=== PATIENT | female | born 1975 | race Hispanic/Latino ===

== ENCOUNTER → 2018-11-14 | Outpatient (CLI) | payer BC | END | disposition home or self-care (01) | LOC: RAH 07:44 | PROVIDERS: ATTEND Internal Medicine | DX: K76.0 Fatty (change of) liver, not elsewhere classified (principal); K43.9 Ventral hernia without obstruction or gangrene; Z90.49 Acquired absence of other specified parts of digestive tract | CPT/HCPCS: 76700 ==

== ENCOUNTER → 2023-11-14 | Outpatient (CLI) | payer BC, OTHER | END | disposition home or self-care (01) | LOC: RAH 14:59 | PROVIDERS: ATTEND Internal Medicine | DX: S06.9X9A Unspecified intracranial injury with loss of consciousness of unspecified duration, initial encounter (principal); M25.552 Pain in left hip; X58.XXXA Exposure to other specified factors, initial encounter; Y93.89 Activity, other specified; Y92.89 Other specified places as the place of occurrence of the external cause; Y99.8 Other external cause status | CPT/HCPCS: 36415; 70450; 73502; 80053; 80061; 80076; 81001; 82306; 82570; 82607; 83036; 84443; 85025 ==

== ENCOUNTER → 2023-11-14 | Outpatient (CLI) | payer BC, OTHER ==
[2023-11-14 12:27] LABS: BASOPHILS # (AUTO) 0.04 K/uL (0.00-0.20); BASOPHILS % (AUTO) 0.4 % (0.0-5.0); EOSINOPHILS # (AUTO) 0.32 K/uL (0.00-0.70); EOSINOPHILS % (AUTO) 3.6 % (0.0-8.0); HEMATOCRIT 50.2 % (36-48); IMMATURE GRANULOCYTE ABSOLUTE 0.03 K/uL (0-1); LYMPHOCYTES # (AUTO) 2.6 K/uL (1.0-4.8); LYMPHOCYTES % (AUTO) 29.7 % (21.0-51.0); MEAN CORPUSCULAR HEMOGLOBIN 30.5 pg (27.0-33.0); MEAN CORPUSCULAR HGB CONC 32.3 g/dL (32.0-36.0); MEAN CORPUSCULAR VOLUME 94.4 fL (79-99); MONOCYTES # (AUTO) 0.6 K/uL (0.1-1.0); MONOCYTES % (AUTO) 6.3 % (3.0-13.0); NEUTROPHILS # (AUTO) 5.3 K/uL (1.8-7.7); NEUTROPHILS % (AUTO) 59.7 % (40.0-77.0); PLATELET COUNT (AUTO) 381 K/uL (130-400); RED BLOOD CELL COUNT(AUTO) 5.32 MIL/uL (4.00-5.50); RED CELL DISTRIBUTION WIDTH 13.8 % (11.0-15.5); WHITE BLOOD COUNT (AUTO) 8.9 K/uL (4.8-10.8)
[2023-11-14 12:28] LABS: APPEARANCE,URINE CLOUDY (CLEAR); BILIRUBIN,URINE NEGATIVE (NEGATIVE); COLOR,URINE YELLOW (YELLOW); GLUCOSE, URINE (UA) NEGATIVE (NEGATIVE); KETONES,URINE NEGATIVE (NEGATIVE); LEUKOCYTE ESTERASE ,URINE NEGATIVE Leu/uL (NEGATIVE); NITRATE,URINE NEGATIVE (NEGATIVE); OCCULT BLOOD,URINE NEGATIVE (NEGATIVE); PH,URINE 5.5 (5.0-8.0); PROTEIN,URINE NEGATIVE (NEGATIVE); UROBILINOGEN,URINE 0.2 mg/dL (0.2-1.0)
[2023-11-14 12:31] LABS: ADD UA MICROSCOPIC YES
[2023-11-14 12:32] LABS: CREATININE,URINE RANDOM 238.37 mg/dL (30-135)
[2023-11-14 12:34] LABS: BACTERIA,URINE FEW /HPF (None Seen); MUCUS,URINE RARE LPF (None Seen); SQUAMOUS EPITHELIAL CELL,UR FEW /HPF (0-2)
[2023-11-14 12:48] LABS: HEMOGLOBIN A1C 5.9 % (4.0-6.0)
[2023-11-14 12:52] LABS: ALBUMIN 3.9 g/dL (3.5-5.0); BILIRUBIN,DIRECT 0.1 mg/dL (0.0-0.3); BILIRUBIN,TOTAL 0.8 mg/dL (0.2-1.0); POTASSIUM 3.9 mmol/L (3.5-5.1); THYROID STIMULATING HORMONE 1.04 uIU/mL (0.36-3.74); TOTAL PROTEIN, SERUM 8.2 g/dL (6.0-8.3)
== END | disposition home or self-care (01) ==
LOC: RAH 11:37
PROVIDERS: ATTEND Internal Medicine
DX: S06.9X9A Unspecified intracranial injury with loss of consciousness of unspecified duration, initial encounter (principal); Z13.1 Encounter for screening for diabetes mellitus; M25.552 Pain in left hip; E78.5 Hyperlipidemia, unspecified; E53.8 Deficiency of other specified B group vitamins; R53.83 Other fatigue; X58.XXXA Exposure to other specified factors, initial encounter; Y93.89 Activity, other specified; Y92.89 Other specified places as the place of occurrence of the external cause; Y99.8 Other external cause status
CPT/HCPCS: 36415; 73502; 80053; 80061; 80076; 81001; 82306; 82570; 82607; 83036; 84443; 85025

== ENCOUNTER 2024-04-16 10:25 | Emergency (ER) | payer BC, OTHER ==
[~2024-04-16] VITALS: Ht 154.9 cm; Wt 100.2 kg
--- NOTE | 2024-04-16 10:49 | EKG ---
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
[2024-04-16] MEDS: ketOROlac 15MG/ML VIAL (15MG/ML) IV ONE (11:08)
[2024-04-16] MEDS: 0.9%NACL 1000ML 1,000 ML IV ONE (11:08)
[2024-04-16 11:15] LABS: CREATININE 0.9 mg/dL (0.5-1.0); POTASSIUM 4.2 mmol/L (3.5-5.1)
[2024-04-16 11:17] LABS: BASOPHILS # (AUTO) 0.04 K/uL (0.00-0.20); BASOPHILS % (AUTO) 0.4 % (0.0-5.0); EOSINOPHILS # (AUTO) 0.53 K/uL (0.00-0.70); EOSINOPHILS % (AUTO) 5.4 % (0.0-8.0); IMMATURE GRANULOCYTE ABSOLUTE 0.07 K/uL (0-1); LYMPHOCYTES # (AUTO) 3.2 K/uL (1.0-4.8); MEAN CORPUSCULAR HEMOGLOBIN 30.9 pg (27.0-33.0); MEAN CORPUSCULAR HGB CONC 33.4 g/dL (32.0-36.0); MEAN CORPUSCULAR VOLUME 92.5 fL (79-99); MONOCYTES # (AUTO) 0.6 K/uL (0.1-1.0); MONOCYTES % (AUTO) 5.6 % (3.0-13.0); NEUTROPHILS # (AUTO) 5.4 K/uL (1.8-7.7); NEUTROPHILS % (AUTO) 54.9 % (40.0-77.0); PLATELET COUNT (AUTO) 338 K/uL (130-400); RED BLOOD CELL COUNT(AUTO) 5.08 MIL/uL (4.00-5.50); RED CELL DISTRIBUTION WIDTH 13.4 % (11.0-15.5); WHITE BLOOD COUNT (AUTO) 9.8 K/uL (4.8-10.8)
[2024-04-16 11:19] LABS: ALBUMIN 3.6 g/dL (3.5-5.0); BILIRUBIN,DIRECT 0.1 mg/dL (0.0-0.3); BILIRUBIN,TOTAL 0.7 mg/dL (0.2-1.0); TOTAL PROTEIN, SERUM 7.6 g/dL (6.0-8.3)
[2024-04-16] MEDS ORDERED: IOHEXOL-350 75 ML VIAL IV ONE (11:22)
--- NOTE | 2024-04-16 11:42 | ERN ---
General Chief Complaint: Abdominal Pain Stated Complaint: SENT BY DOCTOR Time Seen by MD: 10:28 History of Present Illness Initial Comments 49-year-old female sent in by Dr. Barbosa for further evaluation of lower abdominal pain. Patient was following up with her primary doctor. She had had a few days of left lower quadrant/pelvic pain without any other symptoms. She had a reported low blood pressure at the clinic prompting her to come here for further evaluation and a CT scan. Patient describes left lower quadrant pain de scribed as pelvic pain. No vomiting, diarrhea, vaginal bleeding or discharge or urinary symptoms. She does report a surgical history of a hysterectomy. She reports that she has had ovarian cysts in the past and she reports this may be a cyst. Allergies: Coded Allergies: No Known Allergies (Unverified Allergy, Unknown, 04/16/24) Past Medical History Past Medical History: Diabetes-Type II, Hypertension Past Surgical History: Hysterectomy, Cholecystectomy, Pacer/AICD ROS Dictation CONSTITUTIONAL: No chills, no fever, no weakness, no diaphoresis, no malaise. HEAD/FACE: No signs of trauma. EENT: No eye pain, no blurred vision, no tearing, no double vision, no ear pain, no ear discharge, no nose pain, no nasal congestion, no throat pain, no throat swelling, no mouth pain. RESPIRATORY: No cough, no orthopnea, no SOB, no stridor, no wheezing. CARDIOVASCULAR: No chest pain, no edema, no palpitations, no syncope. GASTROINTESTINAL/ABDOMINAL: Left lower quadrant pain GENITOURINARY: No abnormal discharge, no dysuria, no frequent urination, no hematuria. No complaints of pain in the genitals. MUSCULOSKELETAL: No back pain, no gout, no joint pain, no joint swelling, no muscle pain, no muscle stiffness, no neck pain. INTEGUMENTARY: No change in color, no change in hair/nails, no dryness, no lesion, no lumps, no rash. NEUROLOGICAL/PSYCH: No anxiety, not depressed, no emotional problem, no headache, no numbness, no pre-existing deficit, no history of seizures, no tremors, no weakness. HEMATOLOGIC/LYMPHATIC: Not anemic, no history of blood clots, no apparent bleeding, no bruising, glands not swollen. All Systems Negative, Except as Noted. Physical Exam Physical Exam Dictation VITAL SIGNS: Reviewed. GENERAL APPEARANCE: Alert, oriented x3, no acute distress, obese. HEAD AND FACE: Non-traumatic. EYES: PERRL, pink conjunctivas, eyelid no trauma, anterior chamber clear. EARS: Pinnas intact and no signs of trauma or erythema. Ear canals clear and no discharge. TMs no erythema. NOSE: No discharge, no bleeding. OROPHARYNX: Mouth normal, teeth no caries, tongue pink. Pharynx clear, no erythema. Tonsils no exudates, no abscesses noted. Mucous membrane moist. NECK: Supple, non-tender, no thyromegaly, no masses, no JVD, no bruits. BREAST: Deferred. CHEST: No tenderness, no crepitus, no paradoxical movement, no retractions. LUNGS: Clear, well-ventilated, symmetric, no rales, no wheezing, no rhonchi, no stridor, good breath sounds bilaterally. HEART: Regular rate, regular rhythm, no murmur, no gallops. VASCULAR: No peripheral edema. ABDOMEN: Soft, positive bowel sounds, nondistended, no guarding, nontender, no rebound, no masses no hepatomegaly, no splenomegaly, no Mckeon's sign, no hernias. RECTAL: Deferred. GENITAL: Deferred. NEUROLOGICAL: Normal speech, gross motor function intact, gross sensory function intact. MUSCULOSKELETAL: Neck nontender, full range of motion, back nontender, full range of motion. EXTREMITIES: Nontender, full range of motion. SKIN: Color pink, dry, no turgor, no rash, no lacerations, no abrasions, no contusions. LYMPHATICS: Deferred. Results Laboratory and Microbiology Lab and Micro Result Laboratory Tests Test 04/16/24 10:52 04/16/24 13:01 White Blood Count 9.8 K/uL (4.8-10.8) Red Blood Count 5.08 MIL/uL (4.00-5.50) Hemoglobin 15.7 g/dL (12.0-16.0) Hematocrit 47.0 % (36-48) Mean Corpuscular Volume 92.5 fL (79-99) Mean Corpuscular Hemoglobin 30.9 pg (27.0-33.0) Mean Corpuscular Hemoglobin Concent 33.4 g/dL (32.0-36.0) Red Cell Distribution Width 13.4 % (11.0-15.5) Platelet Count 338 K/uL (130-400) Mean Platelet Volume 10.1 fL (7.5-10.5) Immature Granulocyte % (Auto) 0.7 % (0-1) Neutrophils (%) (Auto) 54.9 % (40.0-77.0) Lymphocytes (%) (Auto) 33.0 % (21.0-51.0) Monocytes (%) (Auto) 5.6 % (3.0-13.0) Eosinophils (%) (Auto) 5.4 % (0.0-8.0) Basophils (%) (Auto) 0.4 % (0.0-5.0) Neutrophils # (Auto) 5.4 K/uL (1.8-7.7) Lymphocytes # (Auto) 3.2 K/uL (1.0-4.8) Monocytes # (Auto) 0.6 K/uL (0.1-1.0) Eosinophils # (Auto) 0.53 K/uL (0.00-0.70) Basophils # (Auto) 0.04 K/uL (0.00-0.20) Absolute Immature Granulocyte (auto 0.07 K/uL (0-1) Nucleated Red Blood Cells 0.0 % (0.0-0.19) Sodium Level 143 mmol/L (136-145) Potassium Level 4.2 mmol/L (3.5-5.1) Chloride Level 105 mmol/L (101-111) Carbon Dioxide Level 28 mmol/L (21-32) Blood Urea Nitrogen 9 mg/dL (7-18) Creatinine 0.9 mg/dL (0.5-1.0) Glomerular Filtration Rate Calc 77 mL/min (>90) Random Glucose 118 mg/dL (70-105) H Lactic Acid Level 2.2 mmol/L (0.8-2.5) Total Calcium 8.9 mg/dL (8.5-10.1) Total Bilirubin 0.7 mg/dL (0.2-1.0) Direct Bilirubin 0.1 mg/dL (0.0-0.3) Aspartate Amino Transf (AST/SGOT) 35 U/L (10-37) Alanine Aminotransferase (ALT/SGPT) 75 U/L (12-78) Alkaline Phosphatase 156 U/L (50-136) H Total Protein 7.6 g/dL (6.0-8.3) Albumin 3.6 g/dL (3.5-5.0) Lipase 39 U/L (16-77) Urine Color LIGHT-YELLOW (YELLOW) Urine Appearance CLEAR (CLEAR) Urine pH 6.5 (5.0-8.0) Urine Specific [place] OVER (1.001-1.031) Urine Protein NEGATIVE mg/dL (NEGATIVE) Urine Glucose (UA) NEGATIVE mg/dL (NEGATIVE) Urine Ketones NEGATIVE mg/dL (NEGATIVE) Urine Occult Blood NEGATIVE (NEGATIVE) Urine Nitrate NEGATIVE (NEGATIVE) Urine Bilirubin NEGATIVE mg/dL (NEGATIVE) Urine Urobilinogen 0.2 mg/dL (0.2-1.0) Urine Leukocyte Esterase NEGATIVE Adi/uL MDM CC: Lower abdominal. Historian: Patient Comorbidities: Diabetes, hypertension, cholecystectomy, pacer AICD Vital signs: Stable, patient is stable ER Differential diagnosis: Biliary pathology diverticulitis, appendicitis nausea. Labs show a normal metabolic panel, normal liver enzymes, normal CBC with differential, normal lactic acid, normal urinalysis, normal lipase. CT abdomen and pelvis per my independent interpretation shows no free air no surgical pathology and mold no major abnormalities CT read shows right ovarian cyst 4 cm very small low suspicion for a torsion, absent gallbladder and moderate fatty liver. Patient received IV Toradol and IV fluids here in the ER. Based on the patient's presentation including normal labs stable vital signs benign exam normal CT scan very low suspicion for any life threats. No signs of surgical pathology. No signs of SIRS or sepsis. It is a this point in time patient appears safe for discharge to follow up with Dr. barbosa as an outpatient. REASON: LLQ abd pain ORDERING PHYSICIAN: CESILIA KHAN DO PROCEDURE: ABD PEL W - CT ABDOMEN/PELVIS W/CONTRAST CT ABDOMEN/PELVIS W/CONTRAST REASON: LLQ abd pain COMPARISON: None. TECHNIQUE: Images are obtained from lung bases to the symphysis pubis following IV contrast, 75 cc Omnipaque 350. FINDINGS: Lung bases are clear. There is moderate hepatic steatosis. There are no focal liver lesions.. There are normal-appearing kidneys.. Spleen and pancreas appear unremarkable. There has been a previous cholecystectomy. Bowel loops appear unremarkable. This includes normal appearance of the appendix There is no evidence of free fluid or intraperitoneal air. There are no focal fluid collections. Aorta and retroperitoneum appear normal. There is no retroperitoneal or pelvic lymphadenopathy. Uterus is absent. There is a simple appearing 4 cm right ovarian cyst. Pelvic soft tissues appear otherwise unremarkable. The anterior abdominal wall is intact. Osseous structures appear unremarkable. IMPRESSION: 1. Moderate hepatic steatosis. 2. Absent gallbladder. 3. 4 cm simple appearing right ovarian cyst ED Course Orders Procedure Category Date Status Time Cbc With Differential LAB 04/16/24 Complete 10:36 Urinalysis Profile LAB 04/16/24 Complete 10:36 Ct Abdomen/Pelvis CT 04/16/24 Resulted W/Contrast 10:36 12 Lead Ekg Tracing- EKG 04/16/24 Resulted Technical 10:36 0.9%Nacl 1000ml (Ns PHA 04/16/24 Complete 1000ml) 11:00 Lipase LAB 04/16/24 Complete 10:36 Basic Metabolic Panel LAB 04/16/24 Complete 10:36 Hepatic Function Panel LAB 04/16/24 Complete 10:36 Lactic Acid LAB 04/16/24 Complete 10:36 Ketorolac PHA 04/16/24 Complete Tromethamine 15mg/Ml 11:00 Iohexol (Omnipaque) PHA 04/16/24 Complete 11:22 Vital Signs Date Time Temp Pulse Resp B/P (MAP) Pulse Ox O2 Delivery O2 Flow Rate FiO2 04/16/24 14:15 97.9 60 20 126/72 96 Room Air* 0 21 04/16/24 12:19 97.9 59 20 131/73 96 Room Air* 0 21 04/16/24 11:18 97.9 60 20 120/72 96 Room Air* 0 21 04/16/24 10:30 97.3 59 20 152/67 96 Room Air DX & DISP Disposition: Discharge Departure Impression: Primary Impression: Ovarian cyst Condition: Stable Additional Instructions: You have an ovarian cyst measuring 4 cm. This may be causing your symptoms. Your blood pressure has been stable here in the emergency department. You had no episodes of low blood pressure. Your lab work ( CBC, BMP, liver function tests, lactic acid, lipase ) is normal. Your urinalysis is normal. The CT scan of your abdomen and pelvis shows the cyst and a fatty liver, but is otherwise unremarkable. I recommend that you take 800 mg of ibuprofen up to 3 times a day as needed for pain or discomfort. These medications are [id number]. Please follow up with Dr Barbosa as needed. Referrals: PILAR BARBOSA MD (PCP) CESILIA KHAN DO Apr 16, 2024 11:42
--- NOTE | 2024-04-16 11:54 | HMCIMG ---
CT ABDOMEN/PELVIS W/CONTRAST REASON: LLQ abd pain COMPARISON: None. TECHNIQUE: Images are obtained from lung bases to the symphysis pubis following IV contrast, 75 cc Omnipaque 350. FINDINGS: Lung bases are clear. There is moderate hepatic steatosis. There are no focal liver lesions.. There are normal-appearing kidneys.. Spleen and pancreas appear unremarkable. There has been a previous cholecystectomy. Bowel loops appear unremarkable. This includes normal appearance of the appendix There is no evidence of free fluid or intraperitoneal air. There are no focal fluid collections. Aorta and retroperitoneum appear normal. There is no retroperitoneal or pelvic lymphadenopathy. Uterus is absent. There is a simple appearing 4 cm right ovarian cyst. Pelvic soft tissues appear otherwise unremarkable. The anterior abdominal wall is intact. Osseous structures appear unremarkable. IMPRESSION: 1. Moderate hepatic steatosis. 2. Absent gallbladder. 3. 4 cm simple appearing right ovarian cyst CT was performed with one or more following dose reduction techniques: automated exposure control, adjustment of the mA and kv according to patient's size, or use of a iterative reconstruction technique.
[2024-04-16 13:49] LABS: APPEARANCE,URINE CLEAR (CLEAR); BILIRUBIN,URINE NEGATIVE (NEGATIVE); COLOR,URINE LIGHT-YELLOW (YELLOW); GLUCOSE, URINE (UA) NEGATIVE (NEGATIVE); KETONES,URINE NEGATIVE (NEGATIVE); LEUKOCYTE ESTERASE ,URINE NEGATIVE Leu/uL (NEGATIVE); NITRATE,URINE NEGATIVE (NEGATIVE); OCCULT BLOOD,URINE NEGATIVE (NEGATIVE); PH,URINE 6.5 (5.0-8.0); PROTEIN,URINE NEGATIVE (NEGATIVE); UROBILINOGEN,URINE 0.2 mg/dL (0.2-1.0)
[2024-04-16 13:54] LABS: ADD UA MICROSCOPIC NO
[2024-04-16 14:15] VITALS: BP 126/72; PULSE 60; RESP 20; TEMP 97.9; O2SAT 96
== END 2024-04-16 14:24 | disposition home or self-care (01) ==
LOC: EDH 10:25
DX: N83.201 Unspecified ovarian cyst, right side (principal); E11.9 Type 2 diabetes mellitus without complications; I10 Essential (primary) hypertension; Z90.49 Acquired absence of other specified parts of digestive tract; Z90.710 Acquired absence of both cervix and uterus; Z95.810 Presence of automatic (implantable) cardiac defibrillator
CPT/HCPCS: 99284; 74177; 96360; 80076; 80048; 83690; 85025; 83605; 81003; 36415; 93005; J1885; J7030; Q9967